=== PATIENT | male | born 1995 | race Two or more races ===

== ENCOUNTER 2021-02-02 09:54 | Emergency (ER) | payer MEDICAID, OTHER ==
[~2021-02-02] VITALS: Ht 180.3 cm; Wt 89.4 kg
[2021-02-02 10:47] VITALS: BP 137/79
== END 2021-02-02 11:11 | disposition home or self-care (01) ==
LOC: ER 09:54
DX: S39.012A Strain of muscle, fascia and tendon of lower back, initial encounter (principal); X50.1XXA Overexertion from prolonged static or awkward postures, initial encounter; Y93.89 Activity, other specified; Y92.89 Other specified places as the place of occurrence of the external cause; Y99.8 Other external cause status

== ENCOUNTER 2022-04-21 23:24 | Emergency (ER) | payer MEDICAID ==
[~2022-04-21] VITALS: Ht 180.3 cm; Wt 84.6 kg
[2022-04-22] LABS: Albumin 3.9 g/dL (3.4-5.0); Calcium 9.3 mg/dL (8.5-10.1); Potassium 3.9 mmol/L (3.5-5.1)
[2022-04-22] MEDS ORDERED: KETOROLAC TROMETH 60MG/2ML VIAL IM ONE
[2022-04-22 00:14] LABS: Bilirubin, Total 0.9 mg/dL (0.2-1.0)
[2022-04-22 00:15] LABS: Total Protein 7.5 g/dL (6.4-8.2)
[2022-04-22 01:20] LABS: Basophils # (auto) 0 10 ^3/uL (0-0.2); Basophils % (auto) 0.5 % (0.0-2.0); Eosinophils # (auto) 0.3 10 ^3/uL (0-0.8); Eosinophils % (auto) 3.6 % (0.0-7.0); Hematocrit 48.2 % (41.0-53.0); Hemoglobin 16.4 g/dL (13.5-17.5); Lymphocytes # (auto) 1.5 10 ^3/uL (0.4-5.4); Lymphocytes % (auto) 18.1 % (10.0-50.0); Mean Corpuscular Hemoglobin 31.7 pg (28.0-32.0); Mean Corpuscular Volume 93.2 fL (80.0-100.0); Neutrophils # (auto) 5.5 10 ^3/uL (1.6-8.6); Neutrophils % (auto) 65.8 % (37.0-80.0); Nucleated Red Blood Cells % 0.2 %; Red Blood Cells 5.18 10^6/uL (4.5-5.90); Red Cell Distribution Width 13.1 % (11.8-14.3); White Blood Cell 8.3 10^3/uL (4.4-10.8)
[2022-04-22] MEDS ORDERED: IBUP600T28 PO (01:46)
[2022-04-22 02:40] VITALS: BP 124/71
== END 2022-04-22 02:45 | disposition home or self-care (01) ==
LOC: ER 23:24
DX: R73.9 Hyperglycemia, unspecified (principal); R07.89 Other chest pain; E87.8 Other disorders of electrolyte and fluid balance, not elsewhere classified; M94.0 Chondrocostal junction syndrome [Tietze]; F41.9 Anxiety disorder, unspecified
CPT/HCPCS: 36415; 71046; 80053; 84484; 85025; 96372; 99285; J1885

== ENCOUNTER 2024-12-05 02:07 | Emergency (ER) | payer MEDICAID ==
[~2024-12-05] VITALS: Ht 180.3 cm; Wt 98.1 kg
[~2024-12-05 02:07] MED LIST: IBUP1TAB5 PO
[2024-12-05 02:17] VITALS: BP 120/69; PULSE 107; RESP 18; O2SAT 96
--- NOTE | 2024-12-05 02:30 | ED.PDOC ---
SOB-HPI HPI Comments PT CAME TO THE ER WITH CC OF COUGH, FEVER, N/V, SOB. PT IS A&OX4 RR EVEN AND REGULAR NO DISTRESS NOTED AT THIS TIME. PT DENIES CP/D Chief Complaint: Flu like Time Seen by MD: 02:10 Primary Care Provider: ROSARIO Hickman notes: Nurses Notes, Medications, Allergies Information Source: Patient Mode of Arrival: Ambulatory Past Medical History PAST MEDICAL HISTORY: Anxiety Surgical History: Denies all surgeries Family History Family History: Reviewed,noncontributory to illness Social History Smoker: Non-Smoker Alcohol: Denies ETOH Use Drugs: Denies Drug Use Lives In: Home All Other Systems: Reviewed and Negative (see hpi) Physical Exam General Appearance: No Apparent Distress, Normal HEENT: Pharyngeal Erythema, TMs Normal Neck: Full Range of Motion, Non-Tender Respiratory: Lungs Clear, No Respiratory Distress, Normal Breath Sounds Cardiovascular: No Edema, No JVD, No Murmur, No Gallop, Normal Peripheral Pulses, Regular Rate/Rhythm Breast Exam: Deferred Gastrointestinal: No Organomegaly, Non Tender, No Pulsatile Mass, Normal Bowel Sounds, Soft Genitalia: Deferred Pelvic: Deferred Rectal: Deferred Extremities: Normal capillary refill, Normal inspection, Normal range of motion, Non-tender, No pedal edema Musculoskeletal : Apperance: Normal Neurologic: Alert, No Motor Deficits, Normal Affect, Normal Mood, No Sensory Deficits Cerebellar Function: Normal Reflexes: NOT DONE Skin: Dry, Normal Color, Warm Lymphatic: No Adenopathy Was a procedure done? Was a procedure done?: No Differential Dx Differential Diagnosis: Pneumonia, Sinusitis, Otitis Media, Peritonsillar Abscess, Peritonsillar Cellulitis, Pharyngitis, URI X-Ray, Labs, Meds, VS Vital Signs Date Time Temp Pulse Resp B/P (MAP) Pulse Ox O2 Delivery O2 Flow Rate FiO2 12/05/24 03:28 99.0 99.0 12/05/24 02:42 100.2 12/05/24 02:42 100.2 12/05/24 02:17 100.2 107 18 120/69 96 100.2 Lab Test 12/05/24 02:22 Range/Units Influenza Type A Antigen Negative Negative Influenza Type B Antigen Negative Negative SARS-CoV-2 Antigen (Rapid) Negative NEGATIVE Current Medications Medications (Trade) Dose Ordered Sig/Faith Route Start Time Stop Time Status Last Admin Acetaminophen (Tylenol Tablet Or Capsule) 1,000 mg ONCE ONCE PO 12/05/24 02:30 12/05/24 02:31 DC 12/05/24 02:42 Ibuprofen (Motrin Tablet) 400 mg ONCE ONCE PO 12/05/24 02:30 12/05/24 02:31 DC 12/05/24 02:42 X-Ray, Labs, Meds, VS Comment COVID and flu swab negative. However patient is daughter who checked in with patient with same symptoms tested positive for COVID-19. Likely COVID-19 likely false negative. Patient was given ibuprofen and Tylenol for his fever fever down to 99 from over 100 patient reports improvement requesting discharge at this time. Advised him to take [id number] Tylenol or Motrin as needed for fever or pain per labeled dosing instructions. Rest increase p.o. fluids with electrolytes. Follow up with his PCP in 2-3 days as necessary ER return precautions given patient indicates understanding and agrees with discharge plan of care. Time of 1ST Reevaluation: 20:10 Reevaluation 1ST: Unchanged Time of 2ND Reevaluation: 03:05 Reevaluation 2ND: Improved Patient Education/Counseling: Diagnosis, Treatment, Prognosis, Need For Follow Up Family Education/Counseling: No Family Present SEPSIS Sepsis Screen Date sepsis recognized/suspect: Dec 05, 2024 Time Sepsis recognized/suspect: 219 Recent Procedure: No On Antibiotic Therapy: No Respiratory Rate >20: No Heart Rate >90: Yes Temp<36 C (96.8 F) or >38.3 C: No SBP <90 or MAP <65 mmHG: No New Acute Mental Status Change: No Is the patient on CPAP, BIPAP,: No Vital Signs Date Time Temp Pulse Resp B/P (MAP) Pulse Ox O2 Delivery O2 Flow Rate FiO2 12/05/24 03:28 99.0 99.0 12/05/24 02:42 100.2 12/05/24 02:42 100.2 12/05/24 02:17 100.2 107 18 120/69 96 100.2 Medications Medications Dose Ordered Sig/Faith Route Start Time Stop Time Status Last Admin Dose Admin Acetaminophen 1,000 mg ONCE ONCE PO 12/05/24 02:30 12/05/24 02:31 DC 12/05/24 02:42 Ibuprofen 400 mg ONCE ONCE PO 12/05/24 02:30 12/05/24 02:31 DC 12/05/24 02:42 Departure 1 Departure Time of Disposition: 03:09 Impression: Primary Impression: COVID-19 Disposition: 01 HOME / SELF CARE / HOMELESS Condition: Stable Discharged With: Self Critical Care Note Critical Care Time?: No Stability Stability form required: No Heart Score Heart Score: Heart Score Response (Comments) Value History N/A 0 EKG N/A 0 Age <45 0 Risk Factors N/A 0 Troponin N/A 0 Total 0 FELICIA VELAZQUEZ Dec 05, 2024 02:30
[2024-12-05] MEDS: IBUPROFEN 400 MG TAB PO ONE (02:42)
[2024-12-05] MEDS: ACETAMINOPHEN 500 MG TAB or CAP PO ONE (02:42)
[2024-12-05 03:03] LABS: COVID19 ANTIGEN SOFIA FIA NEGATIVE (NEGATIVE)
[2024-12-05 03:28] VITALS: TEMP 99
== END 2024-12-05 03:31 | disposition home or self-care (01) ==
LOC: ER 02:07
DX: R05.9 Cough, unspecified (principal); R50.9 Fever, unspecified; R06.02 Shortness of breath; R11.2 Nausea with vomiting, unspecified; Z20.822 Contact with and (suspected) exposure to COVID-19
CPT/HCPCS: 36415; 87426; 87804